=== PATIENT | male | born 2000 | race Caucasian/White ===

== ENCOUNTER 2022-04-09 10:21 | Inpatient (IN) | payer OTHER ==
[~2022-04-09] VITALS: Ht 165.1 cm; Wt 68.3 kg
[2022-04-09] MEDS ORDERED: NS 1,000 ML IV ONE (10:45)
[2022-04-09 11:02] LABS: BASO % 0.4 % (0.0-1.0); EOS # 0.1 10^3/uL (0.0-0.5); EOS % 1.4 % (0.0-3.0); HEMATOCRIT 41.7 % (42.0-52.0); HEMOGLOBIN 14.4 g/dl (13.5-17.5); LYMPH # 1.5 10^3/uL (1.5-5.0); LYMPH % 20.8 % (24.0-44.0); MEAN CORPUSCULAR HEMOGLOBIN 28.5 pg (27.0-33.0); MEAN CORPUSCULAR HGB CONC 34.5 g/dl (32.0-36.5); MEAN CORPUSCULAR VOLUME 82.6 fl (80.0-96.0); MONO % 13.2 % (2.0-8.0); NEUTROPHILS # 4.7 10^3/uL (1.5-8.5); NEUTROPHILS % 63.9 % (36.0-66.0); PLATELET COUNT, AUTOMATED 286 10^3/uL (150-450); RED BLOOD COUNT 5.05 10^6/uL (4.30-6.10); WHITE BLOOD COUNT 7.3 10^3/uL (4.0-10.0)
[2022-04-09] MEDS ORDERED: ACETYLCYSTEINE IV ONE ×3 (11:05→16:30)
[2022-04-09] MEDS ORDERED: D5W IV ONE ×3 (11:05→16:30)
[2022-04-09 11:57] LABS: RSV AMPLIFICATION NEGATIVE (NEGATIVE)
[2022-04-09 12:33] LABS: ALBUMIN 3.8 GM/DL (3.2-5.2); ALT/SGPT 29 U/L (12-78); BILIRUBIN,DIRECT 0.2 MG/DL (0.0-0.2); BILIRUBIN,TOTAL 0.6 MG/DL (0.2-1.0); BLOOD UREA NITROGEN 20 MG/DL (7-18); CALCIUM LEVEL 8.9 MG/DL (8.5-10.1); CARBON DIOXIDE LEVEL 23 MEQ/L (21-32); CHLORIDE LEVEL 108 MEQ/L (98-107); CREATININE FOR GFR 0.76 MG/DL (0.70-1.30); ETHYL ALCOHOL (ETHANOL) < 0.003 % (0.000-0.010); GLOMERULAR FILTRATION RATE > 60.0 (>60); GLUCOSE, FASTING 91 MG/DL (70-100); POTASSIUM SERUM 4.2 MEQ/L (3.5-5.1); SALICYLATE LEVEL < 1.7 MG/DL (5.0-30.0); SODIUM LEVEL 137 MEQ/L (136-145); THYROID STIMULATING HORMONE 0.992 uIU/ML (0.358-3.740); TOTAL PROTEIN 7.4 GM/DL (6.4-8.2)
[2022-04-09 12:53] LABS: ACETAMINOPHEN LEVEL 115.3 UG/ML (10.0-30.0)
[2022-04-09] MEDS ORDERED: HOME MED LIST COMPLETE! XX SCH (13:25)
[2022-04-09 17:40] LABS: ALBUMIN 3.3 GM/DL (3.2-5.2); ALT/SGPT 19 U/L (12-78); BILIRUBIN,DIRECT < 0.1 MG/DL (0.0-0.2); BILIRUBIN,TOTAL 0.4 MG/DL (0.2-1.0); TOTAL PROTEIN 6.8 GM/DL (6.4-8.2)
[2022-04-09 20:00] LABS: AMPHETAMINES LEVEL URINE NEGATIVE (NEGATIVE); BARBITURATES URINE NEGATIVE (NEGATIVE); BENZODIAZEPINES URINE NEGATIVE (NEGATIVE); CANNABINOIDS URINE NEGATIVE (NEGATIVE); COCAINE METABOLITE URINE NEGATIVE (NEGATIVE); METHADONE URINE NEGATIVE (NEGATIVE); OPIATES URINE NEGATIVE (NEGATIVE); PHENCYCLIDINE URINE NEGATIVE (NEGATIVE)
[2022-04-09 21:20] VITALS: BP 139/75
[2022-04-10] VITALS (8 sets, daily range): BP systolic 108–134; BP diastolic 59–76
[2022-04-10] MEDS ORDERED: CEPACOL LOZENGE PO ONE (01:40)
[2022-04-10 05:46] LABS: BASO # 0.1 10^3/uL (0.0-0.2); BASO % 0.7 % (0.0-1.0); EOS # 0.2 10^3/uL (0.0-0.5); EOS % 2.7 % (0.0-3.0); HEMATOCRIT 40.6 % (42.0-52.0); HEMOGLOBIN 13.8 g/dl (13.5-17.5); LYMPH # 1.9 10^3/uL (1.5-5.0); LYMPH % 27.4 % (24.0-44.0); MEAN CORPUSCULAR HEMOGLOBIN 28.3 pg (27.0-33.0); MEAN CORPUSCULAR VOLUME 83.4 fl (80.0-96.0); MONO # 0.8 10^3/uL (0.0-0.8); MONO % 11.9 % (2.0-8.0); NEUTROPHILS % 57.2 % (36.0-66.0); PLATELET COUNT, AUTOMATED 258 10^3/uL (150-450); RED BLOOD COUNT 4.87 10^6/uL (4.30-6.10)
[2022-04-10 06:20] LABS: ACETAMINOPHEN LEVEL < 2.0 UG/ML (10.0-30.0); ALT/SGPT 18 U/L (12-78); BILIRUBIN,DIRECT < 0.1 MG/DL (0.0-0.2); BILIRUBIN,TOTAL 0.1 MG/DL (0.2-1.0); TOTAL PROTEIN 6.3 GM/DL (6.4-8.2)
[2022-04-10 06:36] LABS: BLOOD UREA NITROGEN 10 MG/DL (7-18); CALCIUM LEVEL 8.9 MG/DL (8.5-10.1); CARBON DIOXIDE LEVEL 25 MEQ/L (21-32); CHLORIDE LEVEL 109 MEQ/L (98-107); CREATININE FOR GFR 0.73 MG/DL (0.70-1.30); GLOMERULAR FILTRATION RATE > 60.0 (>60); GLUCOSE, FASTING 111 MG/DL (70-100); POTASSIUM SERUM 4.5 MEQ/L (3.5-5.1); SODIUM LEVEL 142 MEQ/L (136-145)
[2022-04-11] VITALS: BP 131/69
[2022-04-11 04:00] VITALS: BP 131/69
[2022-04-11 08:07] VITALS: BP 109/60
[2022-04-11] MEDS: SERTRALINE HCL 50 MG TAB PO SCH (12:32)
[2022-04-11 15:51] VITALS: BP 121/69
[2022-04-12] VITALS: BP 117/69
[2022-04-12 08:00] VITALS: BP 117/78
[2022-04-12] MEDS: SERTRALINE HCL 50 MG TAB PO SCH (08:05)
[2022-04-12 20:09] VITALS: BP 136/62
== END 2022-04-12 20:37 | DRG 918 ==
LOC: M ED 10:21 → EDBD 10:21 → M ED INP 12:29 → M PCU 21:26
PROVIDERS: ADMIT Family Medicine; ATTEND Internal Medicine
DX: T39.1X2A Poisoning by 4-Aminophenol derivatives, intentional self-harm, initial encounter (principal); F17.200 Nicotine dependence, unspecified, uncomplicated; F32.A Depression, unspecified

== ENCOUNTER 2022-04-12 17:17 | Inpatient (IN) | payer OTHER ==
[~2022-04-12] VITALS: Ht 165.1 cm; Wt 66.0 kg
[2022-04-12] MEDS ORDERED: traZODone 50 MG TAB PO PRN (17:50)
[2022-04-12] MEDS ORDERED: MOM 30ML SUSPENSION UDC PO PRN (17:50)
[2022-04-12] MEDS ORDERED: ACETAMINOPHEN TAB 650MG DOSE (2X325MG) PO PRN (17:50)
[2022-04-12] MEDS ORDERED: MAALOX 30 ML SUSP *UDC PO PRN (17:50)
[2022-04-12 20:52] VITALS: BP 128/78
[2022-04-13 06:47] VITALS: BP 119/80
[2022-04-13] MEDS: SERTRALINE HCL 50 MG TAB PO SCH (09:19)
[2022-04-14 06:20] VITALS: BP 147/81
[2022-04-14] MEDS: SERTRALINE HCL 50 MG TAB PO SCH (09:11)
[2022-04-14 18:16] VITALS: BP 127/64
[2022-04-15 06:18] VITALS: BP 129/84
[2022-04-15] MEDS: SERTRALINE HCL 50 MG TAB PO SCH (08:18)
[2022-04-15 16:57] VITALS: BP 142/85
[2022-04-16 06:30] VITALS: BP 103/67
[2022-04-16] MEDS: SERTRALINE HCL 50 MG TAB PO SCH (08:13)
[2022-04-16 18:26] VITALS: BP 141/80
[2022-04-17 06:26] VITALS: BP 140/72
[2022-04-17] MEDS: SERTRALINE HCL 50 MG TAB PO SCH (08:17)
[2022-04-17 18:00] VITALS: BP 129/71
[2022-04-18 07:04] VITALS: BP 139/68
[2022-04-18] MEDS: SERTRALINE HCL 50 MG TAB PO SCH (08:17)
[2022-04-19 06:26] VITALS: BP 126/65
[2022-04-19] MEDS: SERTRALINE HCL 50 MG TAB PO SCH (07:47)
[2022-04-19 16:26] VITALS: BP 132/72
[2022-04-20 06:29] VITALS: BP 131/67
[2022-04-20] MEDS: SERTRALINE HCL 50 MG TAB PO SCH (08:36)
[2022-04-20] MEDS ORDERED: ABIL1TAB11 PO (08:59)
[2022-04-20] MEDS ORDERED: TRAZ-252 PO (08:59)
[2022-04-20] MEDS ORDERED: SERT50TA29 PO (08:59)
== END 2022-04-20 10:42 | disposition home or self-care (01) | DRG 881 ==
LOC: M ED INP 17:17 → M PSY 20:40
PROVIDERS: ADMIT Student in an Organized Health Care Education/Training Program; ATTEND Student in an Organized Health Care Education/Training Program
DX: F43.21 Adjustment disorder with depressed mood (principal); F43.10 Post-traumatic stress disorder, unspecified; Z91.51 Personal history of suicidal behavior; Z20.822 Contact with and (suspected) exposure to COVID-19; Z63.8 Other specified problems related to primary support group

== ENCOUNTER 2022-05-23 01:02 | Inpatient (IN) | payer OTHER ==
[~2022-05-23] VITALS: Ht 165.1 cm; Wt 63.0 kg
[~2022-05-23 01:02] MED LIST: ABIL1TAB11 PO; SERT50TA29 PO; TRAZ-252 PO
[2022-05-23 01:26] LABS: HEMATOCRIT 43.7 % (42.0-52.0); MEAN CORPUSCULAR HEMOGLOBIN 28.2 pg (27.0-33.0); MEAN CORPUSCULAR HGB CONC 34.3 g/dl (32.0-36.5); MEAN CORPUSCULAR VOLUME 82.1 fl (80.0-96.0); PLATELET COUNT, AUTOMATED 281 10^3/uL (150-450); RED BLOOD COUNT 5.32 10^6/uL (4.30-6.10); WHITE BLOOD COUNT 6.8 10^3/uL (4.0-10.0)
[2022-05-23 02:02] LABS: RSV AMPLIFICATION NEGATIVE (NEGATIVE)
[2022-05-23 02:13] LABS: ACETAMINOPHEN LEVEL < 2.0 UG/ML (10.0-30.0); ALBUMIN 4.3 GM/DL (3.2-5.2); ALT/SGPT 26 U/L (12-78); BILIRUBIN,DIRECT < 0.1 MG/DL (0.0-0.2); BILIRUBIN,TOTAL 0.2 MG/DL (0.2-1.0); BLOOD UREA NITROGEN 14 MG/DL (7-18); CALCIUM LEVEL 8.9 MG/DL (8.5-10.1); CARBON DIOXIDE LEVEL 25 MEQ/L (21-32); CHLORIDE LEVEL 110 MEQ/L (98-107); CREATININE FOR GFR 0.92 MG/DL (0.70-1.30); ETHYL ALCOHOL (ETHANOL) 0.163 % (0.000-0.010); GLOMERULAR FILTRATION RATE > 60.0 (>60); GLUCOSE, FASTING 137 MG/DL (70-100); POTASSIUM SERUM 3.6 MEQ/L (3.5-5.1); SALICYLATE LEVEL < 1.7 MG/DL (5.0-30.0); SODIUM LEVEL 141 MEQ/L (136-145); TOTAL PROTEIN 7.4 GM/DL (6.4-8.2)
[2022-05-23 03:19] LABS: AMPHETAMINES LEVEL URINE NEGATIVE (NEGATIVE); BARBITURATES URINE NEGATIVE (NEGATIVE); BENZODIAZEPINES URINE NEGATIVE (NEGATIVE); CANNABINOIDS URINE NEGATIVE (NEGATIVE); COCAINE METABOLITE URINE NEGATIVE (NEGATIVE); METHADONE URINE NEGATIVE (NEGATIVE); OPIATES URINE NEGATIVE (NEGATIVE); PHENCYCLIDINE URINE NEGATIVE (NEGATIVE)
[2022-05-23] MEDS ORDERED: ZOLO50TA PO (04:01)
[2022-05-23] MEDS ORDERED: MED REC COMMENT (04:01)
[2022-05-23] MEDS ORDERED: TRAZ-186 PO (04:01)
[2022-05-23] MEDS ORDERED: ABIL1TAB11 PO (04:01)
[2022-05-23] MEDS ORDERED: HOME MED LIST COMPLETE! XX SCH (04:05)
[2022-05-23] MEDS ORDERED: MAALOX 30 ML SUSP *UDC PO PRN (18:55)
[2022-05-23] MEDS ORDERED: MOM 30ML SUSPENSION UDC PO PRN (18:55)
[2022-05-23] MEDS ORDERED: traZODone 50 MG TAB PO PRN (18:55)
[2022-05-23] MEDS ORDERED: ACETAMINOPHEN TAB 650MG DOSE (2X325MG) PO PRN (18:55)
[2022-05-24 02:00] VITALS: BP 138/88
[2022-05-24] MEDS: SERTRALINE HCL 50 MG TAB PO SCH (08:25)
[2022-05-24] MEDS: NICOTINE 21MG/24HR 1 EA TRANSDERMAL TD SCH (08:26)
[2022-05-24 18:00] VITALS: BP 150/82
[2022-05-25 06:22] VITALS: BP 114/63
[2022-05-25 07:45] LABS: CHOLESTEROL RISK RATIO 3.42 (<5)
[2022-05-25] MEDS: SERTRALINE HCL 50 MG TAB PO SCH (08:13)
[2022-05-25] MEDS: NICOTINE 21MG/24HR 1 EA TRANSDERMAL TD SCH (08:13)
[2022-05-25 10:31] LABS: HEMOGLOBIN A1c 5.3 %
[2022-05-26 06:23] VITALS: BP 128/77
[2022-05-26] MEDS: SERTRALINE HCL 50 MG TAB PO SCH (08:51)
[2022-05-26] MEDS: NICOTINE 21MG/24HR 1 EA TRANSDERMAL TD SCH (08:51)
[2022-05-26 18:30] VITALS: BP 118/68
[2022-05-27 07:06] VITALS: BP 116/63
[2022-05-27] MEDS: NICOTINE 21MG/24HR 1 EA TRANSDERMAL TD SCH (07:57)
[2022-05-27] MEDS: SERTRALINE HCL 50 MG TAB PO SCH (07:57)
[2022-05-27] MEDS ORDERED: ABIL1TAB11 PO (12:38)
[2022-05-27] MEDS ORDERED: ZOLO50TA PO (12:38)
== END 2022-05-27 14:46 | disposition home or self-care (01) | DRG 882 ==
LOC: M ED 01:02 → M ED INP 18:53 → M PSY 05-24 01:20
PROVIDERS: ADMIT Psychiatry & Neurology Psychiatry; ATTEND Psychiatry & Neurology Psychiatry
DX: F43.23 Adjustment disorder with mixed anxiety and depressed mood (principal); F43.10 Post-traumatic stress disorder, unspecified; Z91.51 Personal history of suicidal behavior; F17.210 Nicotine dependence, cigarettes, uncomplicated; F10.129 Alcohol abuse with intoxication, unspecified; Z91.128 Patient's intentional underdosing of medication regimen for other reason

== ENCOUNTER 2022-11-23 21:16 | Inpatient (IN) | payer OTHER ==
[~2022-11-23] VITALS: Ht 165.1 cm; Wt 59.1 kg
[~2022-11-23 21:16] MED LIST changes: +MED REC COMMENT; +TRAZ-186 PO; +ZOLO50TA PO
[2022-11-23 22:23] LABS: HEMATOCRIT 43.4 % (42.0-52.0); HEMOGLOBIN 14.2 g/dl (13.5-17.5); MEAN CORPUSCULAR HEMOGLOBIN 27.5 pg (27.0-33.0); MEAN CORPUSCULAR HGB CONC 32.7 g/dl (32.0-36.5); MEAN CORPUSCULAR VOLUME 84.1 fl (80.0-96.0); PLATELET COUNT, AUTOMATED 263 10^3/uL (150-450); RED BLOOD COUNT 5.16 10^6/uL (4.30-6.10); WHITE BLOOD COUNT 8.7 10^3/uL (4.0-10.0)
[2022-11-23 22:45] LABS: ETHYL ALCOHOL (ETHANOL) 0.005 % (0.000-0.010)
[2022-11-23 22:46] LABS: ACETAMINOPHEN LEVEL < 2.0 UG/ML (10.0-20.0); BILIRUBIN,DIRECT 0.1 MG/DL (<0.4); SALICYLATE LEVEL < 3.0 MG/DL (<30)
[2022-11-23 22:58] LABS: RSV AMPLIFICATION NEGATIVE (NEGATIVE)
[2022-11-23 23:07] LABS: AMPHETAMINES LEVEL URINE NEGATIVE (NEGATIVE); BARBITURATES URINE NEGATIVE (NEGATIVE); BENZODIAZEPINES URINE NEGATIVE (NEGATIVE)
[2022-11-23 23:08] LABS: CANNABINOIDS URINE NEGATIVE (NEGATIVE); COCAINE METABOLITE URINE NEGATIVE (NEGATIVE); METHADONE URINE NEGATIVE (NEGATIVE); OPIATES URINE NEGATIVE (NEGATIVE); PHENCYCLIDINE URINE NEGATIVE (NEGATIVE)
[2022-11-23 23:13] LABS: ALBUMIN 4.1 G/DL (3.2-5.2); ALKALINE PHOSPHATASE 75 U/L (46-116); ALT/SGPT 306 U/L (7.0-40); AST/SGOT 91 U/L (<34); BILIRUBIN,TOTAL 0.5 MG/DL (0.3-1.2); BLOOD UREA NITROGEN 23 MG/DL (9-23); CALCIUM LEVEL 9.3 MG/DL (8.5-10.1); CARBON DIOXIDE LEVEL 26 MMOL/L (20-31); CHLORIDE LEVEL 106 MMOL/L (98-107); CREATININE FOR GFR 0.81 MG/DL (0.70-1.30); GLOMERULAR FILTRATION RATE > 60.0 (>60); GLUCOSE, FASTING 72 MG/DL (60-100); SODIUM LEVEL 140 MMOL/L (136-145); TOTAL PROTEIN 7.2 G/DL (5.7-8.2)
[2022-11-24] MEDS ORDERED: ZOLO50TA PO (06:14)
[2022-11-24] MEDS ORDERED: ABIL1TAB11 PO (06:14)
[2022-11-24] MEDS ORDERED: HOME MED LIST COMPLETE! XX SCH (06:15)
[2022-11-24] MEDS: NICOTINE 21MG/24HR 1 EA TRANSDERMAL TD SCH (09:00)
[2022-11-24] MEDS ORDERED: SERTRALINE HCL 50 MG TAB PO SCH (09:00)
[2022-11-24] MEDS ORDERED: IBUPROFEN 400MG TAB PO PRN (12:35)
[2022-11-24] MEDS ORDERED: MOM 30ML SUSPENSION UDC PO PRN (12:35)
[2022-11-24] MEDS ORDERED: traZODone 50 MG TAB PO PRN (12:35)
[2022-11-24] MEDS ORDERED: MAALOX 30 ML SUSP *UDC PO PRN (12:35)
[2022-11-24] MEDS ORDERED: diphenhydrAMINE 25MG CAP PO PRN (12:35)
[2022-11-24 13:47] VITALS: BP 124/63
[2022-11-25 06:24] VITALS: BP 131/59
[2022-11-25] MEDS: SERTRALINE HCL 50 MG TAB PO SCH (08:02)
[2022-11-25] MEDS: NICOTINE 21MG/24HR 1 EA TRANSDERMAL TD SCH (08:03)
[2022-11-25 19:06] VITALS: BP 143/83
[2022-11-26 06:48] VITALS: BP 136/75
[2022-11-26] MEDS: SERTRALINE HCL 50 MG TAB PO SCH (08:19)
[2022-11-26] MEDS: NICOTINE 21MG/24HR 1 EA TRANSDERMAL TD SCH (08:19)
[2022-11-26 17:20] VITALS: BP 128/73
[2022-11-27 06:29] VITALS: BP 120/60
[2022-11-27] MEDS: NICOTINE 21MG/24HR 1 EA TRANSDERMAL TD SCH (08:20)
[2022-11-27] MEDS: SERTRALINE HCL 50 MG TAB PO SCH (08:20)
[2022-11-27 17:11] VITALS: BP 131/80
[2022-11-28 06:23] VITALS: BP 106/55
[2022-11-28] MEDS: SERTRALINE HCL 50 MG TAB PO SCH (08:40)
[2022-11-28] MEDS: NICOTINE 21MG/24HR 1 EA TRANSDERMAL TD SCH (08:41)
[2022-11-28 20:23] VITALS: BP 139/77
[2022-11-29 06:01] VITALS: BP 120/67
[2022-11-29] MEDS: NICOTINE 21MG/24HR 1 EA TRANSDERMAL TD SCH (08:59)
[2022-11-29] MEDS: SERTRALINE HCL 50 MG TAB PO SCH (09:00)
[2022-11-29] MEDS ORDERED: ABIL1TAB11 PO (09:27)
[2022-11-29] MEDS ORDERED: ZOLO50TA PO (09:27)
[2022-11-29 17:21] VITALS: BP 138/64
[2022-11-30 06:16] VITALS: BP 123/58
[2022-11-30] MEDS: SERTRALINE HCL 50 MG TAB PO SCH (08:57)
[2022-11-30] MEDS: NICOTINE 21MG/24HR 1 EA TRANSDERMAL TD SCH (08:58)
== END 2022-11-30 13:19 | disposition home or self-care (01) | DRG 881 ==
LOC: M ED 21:16 → M ED INP 11-24 12:31 → M PSY 11-24 14:01
PROVIDERS: ADMIT Student in an Organized Health Care Education/Training Program; ATTEND Psychiatry & Neurology Psychiatry
DX: F32.A Depression, unspecified (principal); R45.851 Suicidal ideations; F17.290 Nicotine dependence, other tobacco product, uncomplicated; F43.10 Post-traumatic stress disorder, unspecified; Z79.899 Other long term (current) drug therapy; F17.210 Nicotine dependence, cigarettes, uncomplicated; Z91.51 Personal history of suicidal behavior

== ENCOUNTER 2023-03-24 10:47 | Emergency (ER) | payer OTHER ==
[~2023-03-24] VITALS: Ht 165.1 cm; Wt 70.7 kg
[2023-03-24 11:41] LABS: BASO % 0.5 % (0.0-1.0); EOS # 0.1 10^3/uL (0.0-0.5); HEMATOCRIT 46.6 % (42.0-52.0); HEMOGLOBIN 15.5 g/dl (13.5-17.5); LYMPH # 1.5 10^3/uL (1.5-5.0); LYMPH % 21.1 % (24.0-44.0); MEAN CORPUSCULAR HEMOGLOBIN 27.7 pg (27.0-33.0); MEAN CORPUSCULAR HGB CONC 33.3 g/dl (32.0-36.5); MEAN CORPUSCULAR VOLUME 83.2 fl (80.0-96.0); MONO # 0.7 10^3/uL (0.0-0.8); MONO % 8.9 % (2.0-8.0); NEUTROPHILS % 68.2 % (36.0-66.0); PLATELET COUNT, AUTOMATED 261 10^3/uL (150-450); WHITE BLOOD COUNT 7.3 10^3/uL (4.0-10.0)
[2023-03-24 12:00] LABS: ETHYL ALCOHOL (ETHANOL) 0.004 % (0.000-0.010)
[2023-03-24 12:01] LABS: BLOOD UREA NITROGEN 20 MG/DL (9-23); CALCIUM LEVEL 9.1 MG/DL (8.5-10.1); CARBON DIOXIDE LEVEL 26 MMOL/L (20-31); CHLORIDE LEVEL 103 MMOL/L (98-107); CREATININE FOR GFR 0.81 MG/DL (0.70-1.30); GLOMERULAR FILTRATION RATE > 60.0 (>60); GLUCOSE, FASTING 133 MG/DL (60-100); POTASSIUM SERUM 3.9 MMOL/L (3.5-5.1); SODIUM LEVEL 137 MMOL/L (136-145)
[2023-03-24 12:04] LABS: FREE T4 1.26 NG/DL (0.89-1.76); THYROID STIMULATING HORMONE 1.324 uIU/ML (0.55-4.78)
[2023-03-24 12:14] LABS: RSV AMPLIFICATION NEGATIVE (NEGATIVE)
[2023-03-24] MEDS ORDERED: NS 1,000 ML IV ONE ×2 (13:20→14:35)
[2023-03-24 16:12] LABS: AMPHETAMINES LEVEL URINE NEGATIVE (NEGATIVE); BARBITURATES URINE NEGATIVE (NEGATIVE); BENZODIAZEPINES URINE NEGATIVE (NEGATIVE); CANNABINOIDS URINE NEGATIVE (NEGATIVE); COCAINE METABOLITE URINE NEGATIVE (NEGATIVE); METHADONE URINE NEGATIVE (NEGATIVE); OPIATES URINE NEGATIVE (NEGATIVE); PHENCYCLIDINE URINE NEGATIVE (NEGATIVE)
[2023-03-24 17:00] VITALS: BP 145/67
== END 2023-03-24 17:13 | disposition home or self-care (01) ==
LOC: M ED 10:47
DX: I95.1 Orthostatic hypotension (principal); F43.10 Post-traumatic stress disorder, unspecified; F41.9 Anxiety disorder, unspecified; F32.A Depression, unspecified; F17.200 Nicotine dependence, unspecified, uncomplicated; Z79.899 Other long term (current) drug therapy